=== PATIENT | female | born 1990 | race Caucasian/White ===

== ENCOUNTER 2018-05-18 17:16 | Emergency (ER) | payer OTHER ==
[~2018-05-18] VITALS: Ht 172.7 cm; Wt 68.0 kg
[2018-05-18 17:52] VITALS: BP 124/77
--- NOTE | 2018-05-18 18:16 | RADIOLOGY REPORT ---
EXAMINATION: XR FOOT, LEFT CLINICAL INFORMATION: Toe pain of the fifth toe COMPARISON: None TECHNIQUE: AP, lateral, and oblique views of the left foot. FINDINGS: Acute oblique fracture through the fifth toe proximal phalanx. Minimal lateral displacement and medial angulation. Associated soft tissue swelling. No radiopaque foreign body. IMPRESSION: Acute angulated fracture through the fifth toe proximal phalanx without intra-articular extension.
--- NOTE | 2018-05-18 19:24 | ED ANKLE/FOOT INJURY COMPLAINT ---
History of Present Illness General Chief Complaint: Foot or Ankle Injury Stated Complaint: SIB WALK IN FOR EVAL OF BROKEN PINKY TOE Source: patient Exam Limitations: no limitations Vital Signs & Intake/Output Vital Signs & Intake/Output Vital Signs Date Time Temp Pulse Resp B/P B/P Pulse O2 O2 Flow FiO2 Mean Ox Delivery Rate 05/18 1930 Room Air 05/18 1752 98.0 91 18 124/77 98 Room Air ED Intake and Output 05/19 0000 05/18 1200 Intake Total Output Total Balance Patient 150 lb Weight Allergies Coded Allergies: Penicillins (Intermediate, RASH A CHILD 05/18/18) Reconcile Medications Hydrocodone/Acetaminophen (Hydrocodon-Acetaminophen 5-325) 5 MG-325 MG TABLET 1-2 TAB PO Q4-6 PRN PRN PAIN Triage Note: 27F SIB URGENT CARE FOR BROKEN LEFT PINKY TOE. ARRIVES WITH TOE SUBLEXED LATERALLY. PUT BACK INTO PLACE IN TRIAGE AND TOLERATED WELL. Triage Nurses Notes Reviewed? yes Occurred: just prior to arrival Duration: hour(s):, constant Timing: single episode today Severity: moderate, severe No Modifying Factors: none : No Patient currently breastfeeds: No HPI: 27-year-old female comes into the emergency room for further evaluation of left fifth toe pain. Patient reports that she caught it on table when getting up and her toe when in the opposite direction. She went to the urgent care center who sent her appear for further evaluation. Sharp throbbing pain. Some associated numbness. SHe comes in for further evaluation. (Bill Jacob) Past History Travel History Traveled to [place] past 21 day No Medical History Any Pertinent Medical History? none Surgical History Surgical History: non-contributory Psychosocial History What is your primary language Portuguese Tobacco Use: Never used Family History Hx Contributory? No (Bill Jacob) Review of Systems Review of Systems Constitutional: Reports: no symptoms. EENTM: Reports: no symptoms. Respiratory: Reports: no symptoms. Cardiovascular: Reports: no symptoms. GI: Reports: no symptoms. Genitourinary: Reports: no symptoms. Musculoskeletal: Reports: see HPI. Skin: Reports: no symptoms. Neurological/Psychological: Reports: no symptoms. Hematologic/Endocrine: Reports: no symptoms. Immunologic/Allergic: Reports: no symptoms. All Other Systems: Reviewed and Negative (Bill Jacob) Physical Exam Physical Exam General Appearance: well developed/nourished, mild distress Head: atraumatic Eyes: Bilateral: normal appearance. Ears, Nose, Throat: normal ENT inspection, hearing grossly normal Neck: normal inspection Cardiovascular/Respiratory: no respiratory distress Back: normal inspection Leg/Knee/Thigh Left: normal inspection Ankle Left: normal inspection, normal range of motion Foot Left: tenderness left fifth toe, cap refill intact, dressing in place AND TOE aligned anatomically Psychiatric: awake, alert, oriented x 3 Skin: intact, normal color, warm/dry (Bill Jacob) Progress Differential Diagnosis: fracture, dislocation, sprain, contusion Plan of Care: Orders Procedure Date/time Status Durable Medical Equipment 05/18 1925 Active Diagnostic Imaging: Viewed by Me: Radiology Read. Discussed w/RAD: Radiology Read. Radiology Impression: PATIENT: JAYCE BROWN PRESENT AGE: 27 PATIENT ACCOUNT NO: [id number] : 90 LOCATION: [facility] ORDERING PHYSICIAN: Jordon RAZA SERVICE DATE: 05/18/18 EXAM TYPE: RAD - XRY-FOOT COMPLETE, LEFT EXAMINATION: XR FOOT, LEFT CLINICAL INFORMATION: Toe pain of the fifth toe COMPARISON: None TECHNIQUE: AP, lateral, and oblique views of the left foot. FINDINGS: Acute oblique fracture through the fifth toe proximal phalanx. Minimal lateral displacement and medial angulation. Associated soft tissue swelling. No radiopaque foreign body. IMPRESSION: Acute angulated fracture through the fifth toe proximal phalanx without intra-articular extension. DICTATED BY: Stephanie Saldana MD DATE/TIME DICTATED:05/18/181809 MACHINE PECAN PICKER:ABUNDIO DATE/TIME TRANSCRIBED:05/18/181809 CONFIDENTIAL, DO NOT COPY WITHOUT APPROPRIATE AUTHORIZATION. <Electronically signed in Other Vendor System> SIGNED BY: Stephanie Saldana MD 05/18/181815 (Bill Jacob) Departure Departure Disposition: HOME OR SELF CARE Condition: Stable Clinical Impression Primary Impression: Fracture of fifth toe, left, closed Referrals: Tj Marie DPM Patient Has No Primary Care Dr (PCP/Family) Additional Instructions: Stay nonweightbearing. Take Vicodin as needed for pain. Ibuprofen. Return if any other concerns worsening symptoms. Follow-up with your primary care physician this week. Contact them to let them know you were here in the emergency room. Return to the emergency room at any time sooner if you have worsening of your symptoms or any other concerns. Please note that there might be incidental findings in your evaluation that are unrelated to the current emergency department visit. Please notify your primary care doctor about this emergency department visit in order to obtain and review all of the testing performed so that these incidental findings can be monitored as needed. If you were prescribed a narcotic use caution as this medication is highly addictive and may make you feel lightheaded,dizzy or drowsy. These can make you constipated. Use for breakthrough pain only. No driving, drinking alcohol or operating machinary when taking. If you had an x-ray performed, please understand that some fractures may not be seen on the initial set of x-rays. If your symptoms persist you might need a repeat set of x-rays to check for such a fracture. If you had a laceration evaluated, please understand that foreign bodies such as glass or wood may not be visible to the naked eye or on plain x-rays. If the wound becomes red, swollen, increasingly more painful or if there is any drainage from the wound, please have it reevaluated by a physician for the possibility of a retained foreign body. Departure Forms: Customer Survey General Discharge Information Prescriptions: Current Visit Scripts Hydrocodone/Acetaminophen (Hydrocodon-Acetaminophen 5-325) 1-2 TAB PO Q4-6 PRN PRN PAIN #15 TAB Comments 05/18/2018 7:34:26 PM Patient clinically looks well. Patient is in no apparent distress. Patient is nontoxic-appearing. Toe was reduced in triage and postreduction films compared to the patient's x-rays seen on her phone number significantly improved. Referred to flight mechanic. Return if any other concerns. (Bill Jacob) PA/PINMAKER Co-Sign Statement Statement: ED Attending supervision documentation- [] I saw and evaluated the patient. I have also reviewed all the pertinent lab results and diagnostic results. I agree with the findings and the plan of care as documented in the PA's/PINMAKER's documentation. [x] I have reviewed the ED Record and agree with the PA's/PINMAKER's documentation. [] Additions or exceptions (if any) to the PAs/PINMAKER's note and plan are summarized below: [] (Nell JOHNS,Andrei Cristobal) Procedures Splinting Location: LEFT FOOT/TOE Splint Applied By: splint applied by me Pre-Proc Neuro Vasc Exam: normal Post-Proc Neuro Vasc Exam: normal (Javi RAZA,Bill)
[2018-05-18] MEDS ORDERED: HYDROCODON-ACE1 EAC2 PO (19:26)
== END 2018-05-18 19:31 ==
LOC: ERH 17:16
DX: S92.512A Displaced fracture of proximal phalanx of left lesser toe(s), initial encounter for closed fracture (principal); W22.09XA Striking against other stationary object, initial encounter
CPT/HCPCS: 73630-LT